=== PATIENT | male | born 1965 | race Caucasian/White ===

== ENCOUNTER 2018-03-12 15:37 | Emergency (ER) | payer SELFPAY ==
[~2018-03-12] VITALS: Ht 167.6 cm; Wt 86.4 kg
[2018-03-12 15:54] LABS: GLUCOSE,POINT OF CARE 168 MG/DL (70-110)
[2018-03-12] MEDS ORDERED: KETOROLAC TROMETHAMINE 30 MG/ML VIAL IM ONE (18:45)
[2018-03-12] MEDS ORDERED: HYDROCODONE/ACETAMINOPHEN 5-325 MG TABLET PO ONE (18:45)
[2018-03-12 19:43] VITALS: BP 133/83
== END 2018-03-12 19:52 | disposition home or self-care (01) ==
LOC: EMS 15:38
DX: S62.115A Nondisplaced fracture of triquetrum [cuneiform] bone, left wrist, initial encounter for closed fracture (principal); F11.90 Opioid use, unspecified, uncomplicated; F15.90 Other stimulant use, unspecified, uncomplicated; F17.210 Nicotine dependence, cigarettes, uncomplicated; W01.0XXA Fall on same level from slipping, tripping and stumbling without subsequent striking against object, initial encounter; Y93.89 Activity, other specified; Y92.89 Other specified places as the place of occurrence of the external cause; Y99.8 Other external cause status
CPT/HCPCS: 29125; 73110; 73130; 73200; 82962; 96372; 99284; J1885

== ENCOUNTER 2018-03-22 19:07 | Emergency (ER) | payer SELFPAY ==
[~2018-03-22] VITALS: Ht 175.3 cm; Wt 86.4 kg
[2018-03-22] MEDS ORDERED: METF-960 PO (19:21)
[2018-03-22 19:24] LABS: GLUCOSE,POINT OF CARE 227 MG/DL (70-110)
[2018-03-22 20:30] LABS: GLUCOSE,POINT OF CARE 153 MG/DL (70-110)
[2018-03-22 20:50] VITALS: BP 139/75
== END 2018-03-22 20:52 | disposition home or self-care (01) ==
LOC: EMS 19:09
DX: T88.1XXA Other complications following immunization, not elsewhere classified, initial encounter (principal); E11.65 Type 2 diabetes mellitus with hyperglycemia; F17.210 Nicotine dependence, cigarettes, uncomplicated; F15.90 Other stimulant use, unspecified, uncomplicated; F11.90 Opioid use, unspecified, uncomplicated; F19.90 Other psychoactive substance use, unspecified, uncomplicated; Z79.84 Long term (current) use of oral hypoglycemic drugs; Y84.8 Other medical procedures as the cause of abnormal reaction of the patient, or of later complication, without mention of misadventure at the time of the procedure; Y92.89 Other specified places as the place of occurrence of the external cause